=== PATIENT | female | born 1990 | race Caucasian/White ===

== ENCOUNTER 2016-08-18 04:22 | Emergency (ER) | payer MEDICAID ==
[~2016-08-18] VITALS: Ht 170.2 cm; Wt 57.5 kg
[~2016-08-18 04:22] MED LIST: CIPR500T4 PO; DOXY100T20 PO; IBUP-1542 PO
[2016-08-18 04:38] VITALS: Ht 170.2 cm; Wt 57.5 kg
--- NOTE | 2016-08-18 08:15 | RADRPT ---
PROCEDURE: XR Chest. CLINICAL INDICATION: Cough. TECHNIQUE: Single frontal chest x-ray. COMPARISON: None available. FINDINGS: The cardiomediastinal silhouette is unremarkable. No pneumothorax, pleural effusion or consolidation is seen. No acute osseous abnormality is noted. IMPRESSION: 1. No acute cardiopulmonary abnormality. RPTAT: HH .Lenny Allen MD, Date Time Electronically viewed and signed by .Lenny Allen MD, on 08/18/2016 08:15 .N/
[2016-08-18 09:26] LABS: URINE BLOOD (Dip) POC 2+ (NEGATIVE)
[2016-08-18] MEDS ORDERED: AZITHROMYCIN 250 MG TAB PO ONE (09:30)
[2016-08-18] MEDS ORDERED: CEFTRIAXONE 250 MG INJ IM ONE (09:30)
[2016-08-18] MEDS ORDERED: LIDOCAINE 1% (MDV) 20 ML INJ SC ONE (09:30)
[2016-08-18] MEDS ORDERED: POLY10DR19 BOTH EYES (10:06)
[2016-08-18] MEDS ORDERED: BENZ100C70 PO (10:06)
[2016-08-18] MEDS ORDERED: METR500T PO (10:06)
[2016-08-18] MEDS ORDERED: HC30CR25 TOP (10:07)
[2016-08-18] MEDS ORDERED: CETI10CA PO (10:07)
[2016-08-18 10:28] VITALS: BP 120/77; PULSE 60; RESP 18
--- NOTE | 2016-08-18 10:35 | ERD ---
ER Documentation Chief Complaint Date/Time DATE: 08/18/16 TIME: 10:28 Chief Complaint cough for 2 weeks, drainage from eyes for 2 days and a rash HPI Patient is a 25-year-old female who presents to the ED with multiple complaints. She states that she has had a cough for the last 2 weeks. She states that she has had drainage, white discharge from her bilateral eyes. She denies blurry vision. She also complains of a rash on her elbows and legs. She states that the rash is itchy but not painful. She denies shortness of breath or difficulty breathing. She denies headache or dizziness, neck pain or stiffness. She denies sore throat. She denies ear pain or stuffy nose. She states that her sister has had a similar rash, she states that she developed a rash after her sister and states that it is itchy. She also states that her daughter is trying to have the rash. She also states that she is sexually active and does not use protection with her partner. She states that she has had a history of STDs. She states that she was tested for STDs a few weeks ago at another facility and states that the results were negative. However she states that she is having discharge from her vagina. She denies pelvic pain or difficulty urinating or dysuria or urgency. She denies fever or chills. She denies other rashes on her body. She denies drainage from her rash. Denies leg pain or swelling. ROS All systems reviewed and are negative except as per history of present illness. Medications Home Meds Active Scripts Hydrocortisone* Topical (Hydrocortisone* Topical) 2.5%-28.3 Gm Cream..g., 1 APPLIC TOP BID, #1 TUB Prov:TASHA MULLER PA-C 08/18/16 Cetirizine Hcl* (Zyrtec*) 10 Mg Capsule, 10 MG PO DAILY, #20 TAB.CHEW Prov:TASHA MULLER PA-C 08/18/16 Metronidazole* (Flagyl*) 500 Mg Tablet, 500 MG PO TID for 5 Days, TAB Prov:TASHA MULLER PA-C 08/18/16 Polymyxin B Sulfate-TMP* (Polymyxin B-TMP Eye Drops*) 10 Ml Drops, 1 DROP BOTH EYES QID for 7 Days, EA Prov:TASHA MULLER PA-C 08/18/16 Benzonatate* (Tessalon Perle*) 100 Mg Capsule, 100 MG PO Q8H Y for COUGH for 10 Days, CAP Prov:TASHA MULLER PA-C 08/18/16 Ibuprofen* (Motrin*) 600 Mg Tab, 600 MG PO Q6H Y for PAIN AND OR ELEVATED TEMP, #30 TAB Prov:NAM FELIZ NP 08/11/15 Doxycycline Hyclate* (Doxycycline Hyclate*) 100 Mg Tablet.dr, 100 MG PO BID for 14 Days, TAB Prov:NAM FELIZ [employer] 08/11/15 Ciprofloxacin Hcl* (Ciprofloxacin Hcl*) 500 Mg Tablet, 500 MG PO BID for 10 Days , TAB Prov:NAM FELIZ [employer]ER 08/11/15 Reported Medications [none] Unknown Strength No Conflict Check 08/11/15 Allergies Allergies: Coded Allergies: No Known Allergy (Unverified , 08/11/15) PMhx/Soc Medical and Surgical Hx: pt denies Medical Hx, pt denies Surgical Hx History of Surgery: No Anesthesia Reaction: No Hx Neurological Disorder: No Hx Respiratory Disorders: No Hx Cardiac Disorders: No Hx Psychiatric Problems: No Hx Miscellaneous Medical Probl: No Hx Alcohol Use: No Hx Substance Use: Yes (Weekly marijuana use) Hx Tobacco Use: Yes (1 pack a day) Smoking Status: Current every day smoker Physical Exam Vitals Vital Signs Date Time Temp Pulse Resp B/P Pulse Ox O2 Delivery O2 Flow Rate FiO2 08/18/16 04:38 99.0 111 20 124/86 100 Physical Exam GENERAL: Well-developed, well-nourished female. Appears in no acute distress. HEAD: Normocephalic, atraumatic. EYES: Pupils are equally reactive bilaterally. EOMs grossly intact. No conjunctival erythema. ENT: Moist mucous membranes. No uvula deviation. No kissing tonsils. No exudates. TM clear with no erythema or drainage no mastoid tenderness NECK: Supple. No lymphadenopathy or thyromegaly. No meningismus. negative kernig. negative brudinski. LUNG: Clear to auscultation bilaterally. No rhonchi, wheezing, rales or coarse breath sounds. No retractions or nasal flaring HEART: Regular rate and rhythm. No murmurs, rubs or gallops. ABDOMEN: No scars, ecchymosis or rashes noted. Soft, nontender, and nondistended. Positive bowel sounds in all four quadrants. No rebound tenderness , no guarding. (-) McBurneys point tenderness. No CVA tenderness. No pelvic pain BACK: No midline tenderness. Extremities: Equal pulses bilaterally. No peripheral clubbing, cyanosis or edema. No unilateral leg swelling. NEUROLOGIC: Alert and oriented. Moving all four extremities. 5/5 strength in all extremities. Normal speech. Steady gait. SKIN: Normal color. Warm and dry. No rashes or lesions. Capillary refill < 2 seconds Results 24 hrs Laboratory Tests Test 08/18/16 09:29 Bedside Urine Blood 2+ Bedside Urine Glucose (UA) Negative Bedside Urine Ketones (LAB) Negative Bedside Urine Leukocyte Esterase (L Negative Bedside Urine Nitrite (LAB) Negative Bedside Urine Protein (LAB) Negative Bedside Urine pH (LAB) 6.0 Current Medications Medications (Trade) Dose Ordered Sig/Aries Route PRN Reason Start Time Stop Time Status Last Admin Dose Admin Ceftriaxone Sodium (Rocephin) 250 mg ONCE ONCE IM 08/18/16 09:30 08/18/16 09:31 DC 08/18/16 10:14 Lidocaine (Xylocaine 1% (Mdv) 20 ml) 20 ml ONCE ONCE SC 08/18/16 09:30 08/18/16 09:31 DC 08/18/16 10:14 Azithromycin (Zithromax) 1,000 mg ONCE ONCE PO 08/18/16 09:30 08/18/16 09:31 DC 08/18/16 10:14 Procedures/MDM ER COURSE: I kept the patient and/or family informed of laboratory and diagnostic imaging results throughout the emergency room course. EKG, MONITORS, & DIAGNOSTIC IMAGING: [place] [id number] Radiology Main Line: [phone] DIAGNOSTIC IMAGING REPORT Patient: SHERYL ALATORRE : 1990 Age: 25 Sex: F MR #: [id number] DOS: 08/18/16 0655 Ordering MD: TASHA MULLER PA-C Location: [facility] Room/Bed: PROCEDURE: XR Chest. CLINICAL INDICATION: Cough. TECHNIQUE: Single frontal chest x-ray. COMPARISON: None available. FINDINGS: The cardiomediastinal silhouette is unremarkable. No pneumothorax, pleural effusion or consolidation is seen. No acute osseous abnormality is noted. IMPRESSION: 1. No acute cardiopulmonary abnormality. RPTAT: HH .Lenny Allen MD, MD Date Time Electronically viewed and signed by .Lenny Allen MD, MD on 08/18/2016 08: 15 .N/ CC: TASHA MULLER PA-C MEDICATIONS: Rocephin, azithromycin in the ED. LAB INTERPRETATION: UA showed no evidence of leukocytes, nitrites or hematuria. Urine test was negative. MEDICAL DECISION MAKING: This is a 25-year-old female who presents with rash, cough, vaginal discharge and eye discharge. Vital signs were reviewed. Patient is afebrile. Patient is not hypoxic. Patient is not toxic or ill-appearing. I consulted with Dr. Enriquez who came to examine the patient at bedside and spoke with patient regarding plan of action. Patient will be screened for STDs, urine was sent for gonorrhea and chlamydia. I will be treating the patient in the ED for gonorrhea and chlamydia with Rocephin and azithromycin. Patient eye discharge and vaginal discharge are likely related. Patient is having unprotected sex and has a history of STD. I did not think a pelvic ultrasound was necessary at this time as patient did not have pelvic pain or vaginal bleeding. Low suspicion for ovarian torsion, PID, tuboovarian abscess, ectopic , bowel obstruction, pyelonephritis, UTI, appendicitis, cervicitis, septic , molar , HELLP syndrome, preeclampsia, eclampsia, placenta previa, placenta abruptia. Low suspicion for pneumonia, PE, pneumothorax, ACS, epiglottitis, obstruction, TB, pertussis, meningitis, sepsis. Patient does not show signs of respiratory distress and is speaking in full sentences. Her rash does not look infected and is of unknown etiology. Low suspicion for necrotizing fasciitis, SJS, toxic epidermal necrolysis, Kawasaki, erythema multiforme, gangrene, scarlet fever, meningococcemia, sepsis, anaphylaxis, sepsis, deep space infection, or foreign body. DISCHARGE: At this time, patient is stable for discharge and outpatient management with no new complaints during the ER course. Patient was sent home with hydrocortisone cream, Zyrtec, Flagyl, poly-trim drops and Tessalon Yenny advised patient that her partner or partners must be checked and treated as well. Patient stated that her boyfriend will be coming for treatment.. Patient will be discharged home with instructions to recheck for new or worsening symptoms such as fever, nausea, weakness, LOC and to follow up with primary care in the next 1-2 days. Patient was advised to return to the ER for any new or worsening symptoms. Plan was discussed and patient and/or family understands and agrees. Home instructions were given. Departure Diagnosis: Primary Impression: Possible exposure to STD Additional Impressions: Cough Rash Condition: Stable Patient Instructions: Cough, Chronic, Uncertain Cause, (Adult) Additional Instructions: Call your primary care doctor TOMORROW for an appointment during the next 1-2 days.See the doctor sooner or return here if your condition worsens before your appointment time. TASHA MULLER PA-C Aug 18, 2016 10:35
== END 2016-08-18 10:29 | disposition home or self-care (01) ==
LOC: FTE 04:22
DX: R05 Cough (principal); R21 Rash and other nonspecific skin eruption; F17.210 Nicotine dependence, cigarettes, uncomplicated
CPT/HCPCS: 71010; 81003; 87591; 96372; J0696; Z7502; Z7610